=== PATIENT | female | born 1960 | race Caucasian/White ===

== ENCOUNTER 2017-07-15 14:29 | Emergency (ER) | payer OTHER ==
[2017-07-15] MEDS ORDERED: ACETAMINOPHEN 500 MG TAB PO ONE (15:00)
[2017-07-15] MEDS ORDERED: OSELTAMIVIR PHOSPHATE 75 MG CAP PO ONE (15:00)
[2017-07-15] MEDS ORDERED: IBUPROFEN 800 MG TAB PO ONE (15:00)
[2017-07-15 15:01] VITALS: BP 105/59; PULSE 98; RESP 16; TEMP 102.7; O2SAT 93
--- NOTE | 2017-07-15 15:03 | EDPHY ---
H & P Time Seen by Provider: 07/15/17 14:54 HPI/ROS: CHIEF COMPLAINT: Flu symptoms HISTORY OF PRESENT ILLNESS: Patient is a 57-year-old female who comes to the emergency department complaining of a fever, sore throat, dry cough and body aches. Her symptoms began 2 days ago. Yesterday she left work early. No vomiting or GI symptoms. No headache. No rash. No shortness of breath. REVIEW OF SYSTEMS: Constitutional: See HPI EENTM: denies: blurred vision, double vision, nose congestion Respiratory: See HPI Cardiac: denies: chest pain, irregular heart rate, lightheadedness, palpitations Gastrointestinal/Abdominal: denies: abdominal pain, diarrhea, nausea, vomiting, blood streaked stools Genitourinary: denies: dysuria, frequency, hematuria, pain Musculoskeletal: denies: joint pain, muscle pain Skin: denies: lesions, rash, jaundice, bruising Neurological: denies: headache, numbness, paresthesia, tingling, dizziness, weakness Hematologic/Lymphatic: denies: blood clots, easy bleeding, easy bruising Immunologic/allergic: denies: HIV/AIDS, transplant EXAM: GENERAL: Feverish HEAD: Atraumatic, normocephalic. EYES: Pupils equal round and reactive to light, extraocular movements intact, sclera anicteric, conjunctiva are normal. ENT: TMs normal, nares patent, oropharynx clear without exudates. Moist mucous membranes. NECK: Normal range of motion, supple without lymphadenopathy or JVD. LUNGS: Breath sounds clear to auscultation bilaterally and equal. No wheezes rales or rhonchi. HEART: Regular rate and rhythm without murmurs, rubs or gallops. ABDOMEN: Soft, nontender, normoactive bowel sounds. No guarding, no rebound. No masses appreciated. BACK: No CVA tenderness, no spinal tenderness, step-offs or deformities EXTREMITIES: Normal range of motion, no pitting or edema. No clubbing or cyanosis. NEUROLOGICAL: Cranial nerves II through XII grossly intact. Normal speech, normal gait. 5/5 strength, normal movement in all extremities, normal sensation PSYCH: Normal mood, normal affect. SKIN: Warm, dry, normal turgor, no visible rashes or lesions. Source: Patient, Family - Medical/Surgical History Hx Asthma: No Hx Chronic Respiratory Disease: No Hx Diabetes: No Hx Cardiac Disease: No Hx Renal Disease: No Hx Cirrhosis: No Hx Alcoholism: No - Family History Significant Family History: No pertinent family hx - Social History Smoking Status: Never smoked Alcohol Use: Sober Allergies/Adverse Reactions: No Known Allergies Allergy (Verified 07/15/17 14:54) Home Medications: Medication Instructions Recorded Multivitamin (*) 07/15/17 Oseltamivir Phosphate [Tamiflu 75 75 mg PO BID #10 cap 07/15/17 mg (*)] Medical Decision Making ED Course/Re-evaluation: The patient clinically has influenza. I will treat her with Tamiflu. She is nearing the end of the treatment window. I will give her 1st dose here as well as antipyretics. We discussed rest and hydration. Differential Diagnosis: Partial list of the Differential diagnosis considered include but were not limited to; influenza, viral syndrome, RSV and although unlikely based on the history and physical exam, I also considered pneumonia, meningitis, sepsis. I discussed these differential diagnoses and the plan with the patient as well as the usual and expected course. The patient understands that the diagnosis is provisional and that in medicine we are not always correct and that further workup is often warranted. Usual and customary warnings were given. All of the patient's questions were answered. The patient was instructed to return to the emergency department should the symptoms at all worsen or return, otherwise to followup with the physician as we discussed. Departure - Departure Disposition: Home, Routine, Self-Care Clinical Impression: Influenza Condition: Fair Instructions: Influenza (ED) Referrals: NONE *PRIMARY CARE P,. [Primary Care Provider] - As per Instructions Luz Rodgers MD [Medical Doctor] - As per Instructions Prescriptions: Oseltamivir Phosphate [Tamiflu 75 mg (*)] 75 mg PO BID #10 cap
== END 2017-07-15 15:15 | disposition home or self-care (01) ==
LOC: CED 14:29
DX: J11.1 Influenza due to unidentified influenza virus with other respiratory manifestations (principal)